=== PATIENT | male | born 1975 | race Caucasian/White ===

== ENCOUNTER 2021-01-04 11:48 | Inpatient (IN) | payer MEDICAID ==
[~2021-01-04] VITALS: Ht 179.1 cm; Wt 105.7 kg
[2021-01-04] MEDS ORDERED: DiphenhydrAMINE HCL 50 MG/ML VIAL ONE (11:52)
[2021-01-04] MEDS ORDERED: LORazepam 2 MG/ML VIAL ONE (11:52)
[2021-01-04] MEDS ORDERED: HALOPERIDOL LACTATE 5 MG/ML VIAL ONE (11:53)
[2021-01-04] MEDS ORDERED: LORazepam 2 MG/ML VIAL IM ONE (12:00)
[2021-01-04] MEDS ORDERED: HALOPERIDOL LACTATE 5 MG/ML VIAL IM ONE (12:00)
[2021-01-04] MEDS ORDERED: DiphenhydrAMINE HCL 50 MG/ML VIAL IM ONE (12:00)
[2021-01-04 14:18] LABS: BASOPHILS % (AUTO) 0.4 % (0.0-2.0); EOSINOPHILS % (AUTO) 0.2 % (1.0-6.0); HEMATOCRIT 42.2 % (41-53); LYMPHOCYTES # (AUTO) 1.3 K/uL (1.0-4.8); LYMPHOCYTES % (AUTO) 14.9 % (22.0-44.0); MEAN CORPUSCULAR HEMOGLOBIN 29.6 pg (26.0-34.0); MEAN CORPUSCULAR HGB CONC 33.1 G/dL (31.0-37.0); MEAN CORPUSCULAR VOLUME 89 fL (80-100); MONOCYTES # (AUTO) 0.3 K/uL (0.1-1.0); MONOCYTES % (AUTO) 3.6 % (2.0-9.0); NEUTROPHILS # (AUTO) 7.3 K/uL (1.8-7.7); NEUTROPHILS % (AUTO) 80.9 % (40.0-70.0); PLATELET COUNT (AUTO) 233 K/uL (150-450); RED BLOOD CELL COUNT(AUTO) 4.72 MIL/uL (4.50-5.90); RED CELL DISTRIBUTION WIDTH 14.4 % (11.5-14.5)
[2021-01-04 14:30] LABS: CALCIUM, TOTAL 8.5 mg/dL (8.8-10.5); CREATININE 1.54 mg/dL (0.60-1.30); POTASSIUM 3.8 mmol/L (3.5-5.1)
[2021-01-04 14:36] LABS: ALBUMIN 3.5 g/dL (3.4-5.0); BILIRUBIN,TOTAL 0.2 mg/dL (0.1-1.0); TOTAL PROTEIN, SERUM 7.5 g/dL (6.4-8.2)
[2021-01-04 15:18] LABS: COVID AG,FIA SOURCE NASOPHARYNGEAL
[2021-01-04] MEDS ORDERED: TRAZ-257 PO (17:07)
[2021-01-04] MEDS ORDERED: VENL-68 PO (17:07)
[2021-01-04] MEDS ORDERED: MIRT-89 PO (17:07)
[2021-01-04] MEDS ORDERED: QUET25TA PO (17:07)
[2021-01-04] MEDS ORDERED: LAMO100 PO (17:07)
[2021-01-04] MEDS ORDERED: INFLUENZA VIRUS VACCINE QVS 2020-21 (6MO+)/PF 60 MCG/0.5 ML SYRINGE IM ONE (23:00)
[2021-01-04] MEDS ORDERED: LORazepam 2 MG TABLET PO PRN (23:15)
[2021-01-04] MEDS ORDERED: HALOPERIDOL 5 MG TABLET PO PRN (23:15)
[2021-01-04] MEDS ORDERED: ZOLPIDEM TARTRATE 10 MG TABLET PO PRN (23:15)
[2021-01-05 00:39] VITALS: BP 134/84
[2021-01-05] MEDS ORDERED: INFLUENZA VIRUS VACCINE QVS 2020-21 (6MO+)/PF 60 MCG/0.5 ML SYRINGE IM ONE (00:45)
[2021-01-05] MEDS ORDERED: MAG HYDROX/AL HYDROX/SIMETH ES 30 ML SUSPENSION UDCUP PO PRN (07:15)
[2021-01-05] MEDS ORDERED: ONDANSETRON HCL 4 MG TABLET PO PRN (07:15)
[2021-01-05] MEDS ORDERED: NICOTINE 14 MG/24 HOUR PATCH TD PRN (07:15)
[2021-01-05] MEDS ORDERED: MAGNESIUM HYDROXIDE SUSPENSION 30 ML UDCUP PO PRN (07:15)
[2021-01-05] MEDS ORDERED: LOPERAMIDE HCL 2 MG CAPSULE PO PRN (07:15)
[2021-01-05] MEDS ORDERED: ACETAMINOPHEN 325 MG TABLET PO PRN (07:15)
[2021-01-05] MEDS ORDERED: ALBUTEROL SULFATE HFA 90 MCG/PUFF 8 GM INHALER IH PRN (07:15)
[2021-01-05] MEDS ORDERED: IBUPROFEN 400 MG TABLET PO PRN (07:15)
[2021-01-05] MEDS ORDERED: DOCUSATE SODIUM 100 MG CAPSULE PO PRN (07:15)
[2021-01-05] MEDS ORDERED: CloNIDine HCL 0.1 MG TABLET PO PRN (07:15)
[2021-01-05] MEDS ORDERED: GuaiFENesin/D-METHORPHAN [SUGAR-FREE] 200-20MG/10 ML SYRUP UDCUP PO PRN (07:15)
[2021-01-05] MEDS ORDERED: PETROLATUM,WHITE 28 GM JELLY TP PRN (07:15)
[2021-01-05 08:41] VITALS: BP 130/82
[2021-01-05 17:16] VITALS: BP 151/85
[2021-01-05] MEDS: TraZODone HCL 100 MG TABLET PO SCH (20:37)
[2021-01-05] MEDS: MIRTAZAPINE 15 MG TABLET PO SCH (20:37)
[2021-01-05 21:05] VITALS: BP 138/75
[2021-01-06 05:53] VITALS: BP 128/82
[2021-01-06] MEDS: LamoTRIgine 100 MG TABLET PO SCH (08:10)
[2021-01-06] MEDS: VENLAFAXINE HCL 150 MG ER CAPSULE PO SCH (08:10)
[2021-01-06 08:53] VITALS: BP 121/66
[2021-01-06 16:19] VITALS: BP 140/84
[2021-01-06] MEDS: MIRTAZAPINE 15 MG TABLET PO SCH (20:34)
[2021-01-06] MEDS: TraZODone HCL 100 MG TABLET PO SCH (20:34)
[2021-01-07 05:31] VITALS: BP 132/78
[2021-01-07 08:28] VITALS: BP 131/78
[2021-01-07] MEDS: VENLAFAXINE HCL 150 MG ER CAPSULE PO SCH (08:52)
[2021-01-07] MEDS: LamoTRIgine 100 MG TABLET PO SCH (08:52)
== END 2021-01-07 13:21 | disposition home or self-care (01) | DRG 750 ==
LOC: EMS 11:48 → B3A 16:23
PROVIDERS: ADMIT Psychiatry & Neurology Child & Adolescent Psychiatry; ATTEND Psychiatry & Neurology Child & Adolescent Psychiatry
DX: F25.1 Schizoaffective disorder, depressive type (principal); R45.851 Suicidal ideations; E66.3 Overweight; N17.9 Acute kidney failure, unspecified; Z20.822 Contact with and (suspected) exposure to COVID-19; F41.9 Anxiety disorder, unspecified; F10.10 Alcohol abuse, uncomplicated; Y90.9 Presence of alcohol in blood, level not specified; F19.10 Other psychoactive substance abuse, uncomplicated; Z91.5 Personal history of self-harm; Z68.33 Body mass index [BMI] 33.0-33.9, adult; Z81.8 Family history of other mental and behavioral disorders
CPT/HCPCS: 87426; 99291; G0480; J1200; J1630; J2060